=== PATIENT | female | born 1985 | race Caucasian/White ===

== ENCOUNTER → 2017-10-20 12:51 | Outpatient (CLI) | payer BC, SELFPAY | PROVIDERS: PCP Family Medicine; Visit Provider Orthopaedic Surgery | DX: S83.232A Complex tear of medial meniscus, current injury, left knee, initial encounter (principal); Z01.818 Encounter for other preprocedural examination ==

== ENCOUNTER 2017-11-17 09:48 | Emergency (ER) | payer BC, SELFPAY ==
[2017-11-17 10:00] VITALS: BP 158/99; PULSE 72; RESP 18; TEMP 36.7; O2SAT 98
[2017-11-17 10:04] VITALS: RESP 16
--- NOTE | 2017-11-17 10:32 | W.ED.GENAD ---
Discharge Plan Discharge Details Chief Complaint: GenMedical Primary Care Provider: Asa Ochoa ED Provider: eTo Costello Home Meds and New Rx's Prescriptions: No Action ibuprofen [Motrin IB] 200 MG tablet 200 mg PO PRN RF: 0 norethindrone ac-eth estradiol [Loestrin 1.08/09 (21)] 1 EACH tablet 1 ea PO DAILY Qty: 3 RF: 4 prochlorperazine maleate 10 MG tablet 5 - 10 mg PO Q8H PRN PRNQty: 30 RF: 3 multivitamin 1 EACH capsule 1 ea PO DAILY RF: 0 cholecalciferol (vitamin D3) 1,000 UNIT capsule 1,000 unit PO DAILY RF: 0 5-hydroxytryptophan (5-HTP) 50 MG capsule 50 mg PO DAILY RF: 0 Medical Decision Making MDM Narrative Medical decision making narrative: 32-year-old female presents with intermittent episodes of near syncope with associated diaphoresis over days time. She is afebrile, well-appearing, vital signs supple for slight hypertension. Her exam is reassuring including focused neurologic exam. Differential diagnosis given recent surgery and oral contraceptives would include pulmonary embolism, ACS, arrhythmia, dehydration, hypovolemia, electrolyte abnormalities. Laboratories including CBC, comprehensive, d-dimer are reassuring. EKG and chest x-ray without acute findings. Patient laboratories and urine, including her d-dimer are negative. She is not orthostatic. She has not had any significant further episodes. Further history will note previous diagnosis of vertigo and will trial a course of meclizine. Also place her on his heel patch. She will follow-up Dr. Martinez for recheck. She will return to the emergency department for any acute concern. Lab Data Lab results reviewed: Yes I reviewed the patient's lab results. ECG Data Attestation: I personally reviewed and interpreted this ECG (s) as follows: Interpretation: Normal sinus rhythm, rate of 72, QRS is narrow, no ST segment elevation HPI - General Adult General Mode of arrival: ambulatory. Date/Time Provider Initiated Documentation: 11/17/17 10:11. Limitations to Documentation: no limitations. Information obtained by: patient and family. History of Present Illness 32 year old F presents to the emergency department with the chief complaint of Near syncope, described as moderate, and is localized to the chest. Patient started experiencing this day(s) and it has been intermittent. No relieving factors improve symptom(s), No exacerbating factors reported . Patient notes denies fever/chills. Patient did receive the following treatments prior to arrival, none HPI Narrative: This is a 32-year-old female who presents from home with her mother. She describes a gradual onset of intermittent episodes over 4 days time of near syncope. She becomes lightheaded, diaphoretic, feels as if the room is spinning and the vision is going black; she has not had any apolinar syncopal episodes. She denies chest pain. She says associated with a tightness in her chest and abdomen. She does take oral contraceptives. She recently had a left knee arthroscopic repair in October 25. She does not have leg pain or swelling. She does not have shortness of breath or palpitations Related Data Home Medications Medication Instructions Recorded Confirmed ibuprofen [Motrin IB] 200 mg PO PRN 08/15/12 11/17/17 5-hydroxytryptophan (5-HTP) 50 mg PO DAILY 10/20/17 11/17/17 cholecalciferol (vitamin D3) 1,000 unit PO DAILY 10/20/17 11/17/17 multivitamin 1 ea PO DAILY 10/20/17 11/17/17 Allergies Allergy/AdvReac Type Severity Reaction Status Date / Time venlafaxine HCl AdvReac Severe VISUAL Unverified 10/25/17 06:17 [From Effexor] CHANGES General Stated Complaint: GenMedical JANICE: 3 Review of Systems Review of Systems 8 systems reviewed, otherwise neg PFSH Family History Mother Essential hypertension Neoplasm Father Essential hypertension Grandfather Heart disease Grandfather Acute ill-defined cerebrovascular disease Grandmother Heart disease Grandmother No problems noted. Brother No problems noted. Brother No problems noted. Social History Smoking/Tobacco Use Status: Never Surgical History abdominoplasty (05/05/16) Exam Const General: cooperative and comfortable Orientation: alert and oriented x3 HENMT Head: normal to inspection, normocephalic and atraumatic Eyes General: appearance normal, both eyes and all related structures Eyelids: eyelids normal Pupils: PERRL EOM: EOM intact bilaterally Neck Neck: normal visual inspection, full ROM and no lymphadenopathy Chest Chest: normal inspection of the chest and normal palpation of entire chest wall Resp Effort & Inspection: normal respiratory effort Auscultation: clear to auscultation bilaterally Cardio Rhythm: regular rhythm Heart Sounds: S1 normal and S2 normal GI Inspection: normal to inspection Palpation: soft and no hepatosplenomegaly Skin General skin exam: no rashes or lesions noted Lesions: no lesions Rashes: no rashes Neuro General: alert and oriented x3 Cranial Nerves: CN's II-XI intact bilaterally and PERRL Cognition: normal cognition Speech: speech normal Motor: muscle tone normal throughout Sensory Exam: no sensory deficits noted Extrem General: normal to inspection, full ROM and normal capillary refill Psych Appearance: grossly normal and well kempt Speech and Movement: speech and movement normal Mood: congruent mood Affect: normal affect Thought Content: normal Course Vital Signs Temperature 36.7 C 11/17/17 10:00 Pulse 72 11/17/17 10:00 Respiratory Rate 18 11/17/17 10:00 Blood Pressure 158/99 H 11/17/17 10:00 Pulse Oximetry 98 11/17/17 10:00 Temperature 36.7 C 11/17/17 10:00 Pulse 72 11/17/17 10:00 Respiratory Rate 16 11/17/17 10:04 Blood Pressure 158/99 H 11/17/17 10:00 Pulse Oximetry 98 11/17/17 10:00
--- NOTE | 2017-11-17 10:37 | ED.GENADUL_ITS ---
Discharge Plan Discharge Details Chief Complaint: GenMedical Primary Care Provider: Asa Ochoa ED Provider: Teo Costello Home Meds and New Rx's Prescriptions: No Action ibuprofen [Motrin IB] 200 MG tablet 200 mg PO PRN RF: 0 norethindrone ac-eth estradiol [Loestrin 1.08/09 (21)] 1 EACH tablet 1 ea PO DAILY Qty: 3 RF: 4 prochlorperazine maleate 10 MG tablet 5 - 10 mg PO Q8H PRN PRNQty: 30 RF: 3 multivitamin 1 EACH capsule 1 ea PO DAILY RF: 0 cholecalciferol (vitamin D3) 1,000 UNIT capsule 1,000 unit PO DAILY RF: 0 5-hydroxytryptophan (5-HTP) 50 MG capsule 50 mg PO DAILY RF: 0 Medical Decision Making MDM Narrative Medical decision making narrative: 32-year-old female presents with intermittent episodes of near syncope with associated diaphoresis over days time. She is afebrile, well-appearing, vital signs supple for slight hypertension. Her exam is reassuring including focused neurologic exam. Differential diagnosis given recent surgery and oral contraceptives would include pulmonary embolism, ACS, arrhythmia, dehydration, hypovolemia, electrolyte abnormalities. Laboratories including CBC, comprehensive, d-dimer are reassuring. EKG and chest x-ray without acute findings. Patient laboratories and urine, including her d-dimer are negative. She is not orthostatic. She has not had any significant further episodes. Further history will note previous diagnosis of vertigo and will trial a course of meclizine. Also place her on his heel patch. She will follow-up Dr. Martinez for recheck. She will return to the emergency department for any acute concern. Lab Data Lab results reviewed: Yes I reviewed the patient's lab results. ECG Data Attestation: I personally reviewed and interpreted this ECG (s) as follows: Interpretation: Normal sinus rhythm, rate of 72, QRS is narrow, no ST segment elevation HPI - General Adult General Mode of arrival: ambulatory . Date/Time Provider Initiated Documentation: 11/17/17 10:11 . Limitations to Documentation: no limitations . Information obtained by: patient and family . History of Present Illness 32 year old F presents to the emergency department with the chief complaint of Near syncope, described as moderate, and is localized to the chest. Patient started experiencing this day(s) and it has been intermittent. No relieving factors improve symptom(s), No exacerbating factors reported . Patient notes denies fever/chills. Patient did receive the following treatments prior to arrival, none HPI Narrative: This is a 32-year-old female who presents from home with her mother. She describes a gradual onset of intermittent episodes over 4 days time of near syncope. She becomes lightheaded, diaphoretic, feels as if the room is spinning and the vision is going black; she has not had any apolinar syncopal episodes. She denies chest pain. She says associated with a tightness in her chest and abdomen. She does take oral contraceptives. She recently had a left knee arthroscopic repair in October 25. She does not have leg pain or swelling. She does not have shortness of breath or palpitations Related Data Home Medications Medication Instructions Recorded Confirmed ibuprofen [Motrin IB] 200 mg PO PRN 08/15/12 11/17/17 5-hydroxytryptophan (5-HTP) 50 mg PO DAILY 10/20/17 11/17/17 cholecalciferol (vitamin D3) 1,000 unit PO DAILY 10/20/17 11/17/17 multivitamin 1 ea PO DAILY 10/20/17 11/17/17 Allergies Allergy/AdvReac Type Severity Reaction Status Date / Time venlafaxine HCl AdvReac Severe VISUAL Unverified 10/25/17 06:17 [From Effexor] CHANGES General Stated Complaint: GenMedical JANICE: 3 Review of Systems Review of Systems 8 systems reviewed, otherwise neg PFSH Family History Mother Essential hypertension Neoplasm Father Essential hypertension Grandfather Heart disease Grandfather Acute ill-defined cerebrovascular disease Grandmother Heart disease Grandmother No problems noted. Brother No problems noted. Brother No problems noted. Social History Smoking/Tobacco Use Status: Never Surgical History abdominoplasty (05/05/16) Exam Const General: cooperative and comfortable Orientation: alert and oriented x3 HENMT Head: normal to inspection, normocephalic and atraumatic Eyes General: appearance normal, both eyes and all related structures Eyelids: eyelids normal Pupils: PERRL EOM: EOM intact bilaterally Neck Neck: normal visual inspection, full ROM and no lymphadenopathy Chest Chest: normal inspection of the chest and normal palpation of entire chest wall Resp Effort & Inspection: normal respiratory effort Auscultation: clear to auscultation bilaterally Cardio Rhythm: regular rhythm Heart Sounds: S1 normal and S2 normal GI Inspection: normal to inspection Palpation: soft and no hepatosplenomegaly Skin General skin exam: no rashes or lesions noted Lesions: no lesions Rashes: no rashes Neuro General: alert and oriented x3 Cranial Nerves: CN's II-XI intact bilaterally and PERRL Cognition: normal cognition Speech: speech normal Motor: muscle tone normal throughout Sensory Exam: no sensory deficits noted Extrem General: normal to inspection, full ROM and normal capillary refill Psych Appearance: grossly normal and well kempt Speech and Movement: speech and movement normal Mood: congruent mood Affect: normal affect Thought Content: normal Course Vital Signs Temperature 36.7 C 11/17/17 10:00 Pulse 72 11/17/17 10:00 Respiratory Rate 18 11/17/17 10:00 Blood Pressure 158/99 H 11/17/17 10:00 Pulse Oximetry 98 11/17/17 10:00 Temperature 36.7 C 11/17/17 10:00 Pulse 72 11/17/17 10:00 Respiratory Rate 16 11/17/17 10:04 Blood Pressure 158/99 H 11/17/17 10:00 Pulse Oximetry 98 11/17/17 10:00
[2017-11-17 11:16] LABS: Bilirubin Negative (Negative); Blood Negative (Negative); Clarity Clear; Glucose Negative (Negative); Ketones Negative (Negative); Leukocyte Esterase Negative (Negative); Nitrite Negative (Negative); Specific Gravity 1.015 (1.005-1.025); Urobilinogen 0.2 EU/dL (Up TO 0.2)
[2017-11-17] MEDS: Normal Saline 1,000 ML 1000 ML IV (11:20)
[2017-11-17 11:32] LABS: Abs Immature Grans 0.01 k/cumm (0.0-0.09); Absolute Basophil Count 0.02 k/cumm (0.0-0.2); Absolute Eosinophil Count 0.24 k/cumm (0.0-0.7); Absolute Lymphocyte Count 1.63 k/cumm (1.2-3.4); Absolute Monocyte Count 0.42 k/cumm (0.11-0.7); Absolute Neutrophil Count 4.15 k/cumm (1.2-6.7); Basophils % 0.3; Eosinophils % 3.7; HCT 42.2 % (36.0-46.0); Immature Grans % 0.2; Lymphocytes % 25.2; Mean Corp. HGB Concentration 33.2 g/dL (32.0-36.0); Mean Corpuscular Hemoglobin 29.9 pg (27.0-33.0); Mean Corpuscular Volume 90.2 fL (80-95); Mean Platelet Volume 9.5 fL (8.0-11.0); Monocytes % 6.5; Neutrophils % 64.1; Platelet Count 293 x1000/uL (130-400); RBC 4.68 m/cumm (4.00-5.20); RBC Distribution Width 13.1 % (11.7-14.6); White Blood Cell Count 6.47 k/cumm (4.4-10.8)
[2017-11-17 11:46] LABS: ALT 15 U/L (12-78); AST 12 U/L (15-37); Albumin 3.5 g/dL (3.4-5.0); Alkaline Phosphatase 68 U/L (46-116); Anion Gap 6.7 mmol/L (3-11); BUN 9 mg/dL (7-18); Bilirubin, Total 0.5 mg/dL (0.2-1.0); CO2 27.3 mmol/L (21.0-32.0); CREATININE 0.74 mg/dL (0.55-1.02); Calcium 8.8 mg/dL (8.5-10.1); Chloride 104 mmol/L (98-107); Glucose 88 mg/dL (70-100); Magnesium 1.7 mg/dL (1.8-2.4); Sodium 138 mmol/L (136-145); Total Protein 7.7 g/dL (6.4-8.2)
[2017-11-17 11:48] LABS: Troponin I < 0.02 ng/mL (0.00-0.06)
[2017-11-17 12:04] LABS: D-Dimer 306 ng/mlFEU (<500)
[2017-11-17 12:36] VITALS: BP 146/88; PULSE 76; RESP 18; O2SAT 100
--- NOTE | 2017-11-17 12:37 | DI.RAD_ITS ---
SYMPTOMS/DIAGNOSIS: NEAR SYNCOPE PA AND LATERAL CHEST: There are no prior comparison exams. The cardiac and mediastinal contours have a normal appearance. The lungs are clear. No infiltrate, effusion or pneumothorax is seen. IMPRESSION: Negative chest x-ray.
[2017-11-17 12:42] VITALS: BP 137/73; BP 144/92; BP 156/99; PULSE 71; PULSE 74; PULSE 76
[2017-11-17 13:53] VITALS: BP 138/72; PULSE 64; RESP 16; TEMP 36.7; O2SAT 99
--- NOTE | 2017-12-05 15:51 | ZIOP_ITS ---
ZIO PATCH EVENT RECORDER REPORT DATE OF READING: December 01, 2017 ENROLLMENT: November 17, 2017 until November 26, 2017 PRESCRIBING CLINICIAN: Asa Ochoa M.D. PRIMARY INDICATION: Syncope. FINDINGS: 1. Baseline sinus rhythm, 47-141 bpm, average 75 bpm. 2. Rare PAC, less than 1%, no SVT, no AF. 3. Rare PVC, less than 1%, no VT. 4. No significant pauses. 5. Thirteen trigger events, all with sinus rhythm, 72-109 bpm, without any arrhythmia. 6. No symptoms recorded.
== END 2017-11-17 13:53 | disposition home or self-care (01) ==
PROVIDERS: Emergency Provider Emergency Medicine; PCP Family Medicine
DX: R55 Syncope and collapse (principal)
CPT/HCPCS: 36415; 80053; 93005; 93225; 96360; 99285; 71046; 81003; 83735; 84484; 85025; 85379; 93010; 99284

== ENCOUNTER 2018-04-19 08:52 | Outpatient (CLI) | payer BC, SELFPAY ==
--- NOTE | 2018-04-19 08:47 | DI.RAD_ITS ---
SYMPTOM/DIAGNOSIS: LT ANKLE PAIN, M25.572, ? FX LEFT ANKLE: Three views were obtained. No fracture is seen. There is mild hypertrophic spurring of the distal tibia anteriorly.
== END 2018-04-19 09:12 ==
PROVIDERS: PCP Family Medicine; Visit Provider Orthopaedic Surgery
DX: M25.572 Pain in left ankle and joints of left foot (principal); M25.771 Osteophyte, right ankle
CPT/HCPCS: 73610

== ENCOUNTER 2018-04-27 06:12 | Day surgery (SDC) | payer BC, SELFPAY ==
[2018-04-27] VITALS (8 sets, daily range): BP systolic 111–150; BP diastolic 51–90; PULSE 67–83; RESP 13–20; TEMP 36.3–36.9; O2SAT 95–100
[2018-04-27] MEDS: Lactated Ringers 1,000 ML 80 ML IV (06:56)
--- NOTE | 2018-04-27 07:50 | BONE_PTH ---
PATIENT: Angy Brown LOC: [facility] U#:[id number] AGE/SX: 33/F ROOM: RE04/27/[address]: Edvin Page MD : 1985 BED: DIS: 04/27/2018 SPEC #: [id number] RECD: 04/27/18 12:48 STATUS: STEPHANIE AKBAR #: [id number] OBLA: 04/27/18 07:[address]: Edvin Page DEPT: Surgical Specimen RECD BY: Lakisha Dorman ENTERED: 04/27/18 12:50 SP TYPE: Bone OTHR DR: Asa Ochoa MD Tissues: 1 - BONE BX/CURRETTE NOT PATH FRACTURE Procedures: GROSS AND MICRO LEVEL 5 DECALCIFICATION Comments: [id number]
--- NOTE | 2018-04-27 08:10 | DI.RAD_ITS ---
SYMPTOM/DIAGNOSIS: LT ANKLE EXOSTOSIS LEFT FOOT IN THE OR: Fluoroscopy Time: 18 sec., 0.2325 mGy Fluoroscopy of the left foot was utilized by Dr. Page in the OR. Please refer to the procedure report for complete details.
[2018-04-27] MEDS: Bupivacaine 0.5% Pres-Free 30 ML VIAL (08:13)
--- NOTE | 2018-04-27 08:33 | PDOC.DSDIS_ITS ---
Discharge Plan Disposition Patient Disposition: HOME Condition: Improving Discharge Details Attending Provider: Edvin Page Primary Care Provider: Asa Ochoa Home Meds and New Rx's Prescriptions: New hydrocodone-acetaminophen [[place]] 5-325 mg Tablet 1 - 2 tab PO Q4H PRN PRN (Reason: Pain) Qty: 18 RF: 0 No Action epinephrine [EpiPen 2-Eder] 0.3 mg/0.3 mL auto-injector 0.3 mg IM ONCE PRN (Reason: hypersensitivity reaction) Qty: 2 RF: 0 ibuprofen [Motrin IB] 200 MG tablet 200 mg PO PRN RF: 0 prochlorperazine maleate 10 MG tablet 5 - 10 mg PO Q8H PRN PRNQty: 30 RF: 3 Loestrin 1.5/30 (21) 1.5-30 mg-mcg tablet 1 tab PO DAILY Qty: 63 RF: 0 multivitamin 1 EACH capsule 1 ea PO DAILY RF: 0 cholecalciferol (vitamin D3) 1,000 UNIT capsule 1,000 unit PO DAILY RF: 0 5-hydroxytryptophan (5-HTP) 50 MG capsule 50 mg PO DAILY RF: 0 meclizine 12.5 mg tablet 12.5 mg PO TID PRN (Reason: dizziness) Qty: 14 RF: 0 Discharge Instructions Additional Instructions: Keep yout left foot elevated above heart level as much as possible for the next 48-72 hours. Exercise your foot and toes as comfort allows. You mayloosen or remove the ankle brace as soon as you wish. Only use it for discomfort. You may use ice over the incision 20-30 minutes every hour as needed for pain and swelling. For showering tomorrow, use a plastic bag over the the lower leg to keep the bandages dry. On 04/29/18, you may remove all of your bandages and get your incision wet in the shower with soap and water. Gently pat the stiches dry and cover them with an extra large bandaid. Continue using your brace and ice only as needed. Follow-up with Dr. Page in 10 days for wound check and suture removal. Equipment/Supplies: Brace Remove Dressings/Wound Care:: 48 hours Shower/Bathe:: 48 hours Diet:: As Tolerated Discharge Orders Discharge Orders: Discharge Order (Routine); Ordered 04/27/18 Ordered By: Edvin Page
[2018-04-27] MEDS: Ketorolac 30 MG/ML VIAL IVP (08:43)
[2018-04-27] MEDS: fentaNYL 100 MCG/2 ML VIAL IVP ×2 (08:56→09:05)
[2018-04-27] MEDS: HYDROcodone 5/Acetaminophen 325 TAB PO (09:58)
--- NOTE | 2018-04-27 10:32 | ROE_ITS ---
REPORT OF OPERATIVE PROCEDURE DATE OF SURGERY April 27, 2018 PREOPERATIVE DIAGNOSIS Painful exostosis medial aspect left distal tibia. POSTOPERATIVE DIAGNOSIS Painful exostosis medial aspect left distal tibia. PROCEDURE Excision exostosis left distal tibia medial aspect just proximal to the medial malleolus. SURGEON Edvin Page M.D. WINDOWS SERVER ENGINEER Nurse. ANESTHETIC General via LMA by Garo Singh C.R.N.A. PREP ChloraPrep. INDICATIONS This patient presented to my office approximately 10 days ago with a painful exostosis over the media l aspect of her left lower extremity just proximal to the medial malleolus. She has had this for abou t two years. It occurred after she injured her ankle while hiking. It is unclear whether or not this is the result of periosteal new bone formation from trauma or from a nondisplaced medial malleolar fr acture that occurred at the time of the hiking incident. Radiographs showed the exostosis, but did no t demonstrate any evidence of a healed medial malleolar fracture. There was no evidence of a lateral malleolar fracture. There was a small osteophyte over the anterior distal tibia consistent with early osteoarthritis of the ankle. The patient does have some predisposition to arthritis in the ankle bec ause of her morbid obesity. I recommended simple excision. There was nothing on the radiograph to sug gest a neoplasm. I discussed the risks and benefits; she understood and wished to proceed. The patien t found that it had become progressively more painful to the point that it interfered with her abilit y to hike. The patient was seen in the Day Surgery holding area. I reviewed the planned procedure with her and h er mother. I marked her left lower extremity with a surgical skin marker. DESCRIPTION OF OPERATIVE PROCEDURE The patient was taken to the Operating Suite, where she received 2 grams of Ancef as a prophylactic a ntibiotic. A pneumatic tourniquet was applied to the left proximal thigh. Timeout was instituted veri fying the planned procedure and the use of a mini C-arm to make sure any and all of the exostosis had been completely removed. She underwent induction of General anesthesia via LMA. She received her ant ibiotic. The leg was elevated 2 minutes to exsanguinate it. The tourniquet was elevated to 370 mmHg. The exostosis was easily palpable about an inch and a half proximal to the tip of the medial malleo migue. The incision was made over it. Loupe magnification was used throughout. Care was taken to avoid any injury to the saphenous vein. Periosteum over the palpable mass was then incised longitudinally a nd elevated in anterior and posterior flaps. I then used a Bj osteotome to excise the mass into two separate fragments. The larger fragment being slightly posterior to the smaller one. There was no ev idence of any abnormalities in the bone itself. The surface of the bone was carefully smoothed with a rasp. I smoothed it to the point that I could not feel any transition between the normal tibia proxi pj up the shaft with the distal tibia down to the medial malleolus. At this point, a small amount of bees wax was placed in the bone to minimize any bleeding. Sutures of #2-0 Vicryl were placed in th e periosteum and the periosteal flap was closed. The tourniquet was deflated. Hemostasis was under co ntrol and there was excellent return of circulation. The skin was closed with sutures of #4-0 Ethilon in a hsch-xse-bjb-near technique, alternating with horizontal mattress sutures. A small amount of M arcaine, 12 cc of 0.5% Marcaine without epinephrine was injected in the subcutaneous tissues to provi de for postoperative analgesia. The wound was dressed with Xeroform gauze, 4x4s, a 3-inch confirming gauze bandage, 3-inch Tarik wrap and an ankle stabilizing orthosis to help allow her to weight bear imm ediately and to provide a method of keeping her bandages intact. She tolerated the procedure well.
--- NOTE | 2018-05-02 09:08 | PDOC.DSDIS_ITS ---
Discharge Plan Disposition Patient Disposition: HOME Condition: Improving Discharge Details Attending Provider: Edvin Page Primary Care Provider: Asa Ochoa Home Meds and New Rx's Prescriptions: New hydrocodone-acetaminophen [[place]] 5-325 mg Tablet 1 - 2 tab PO Q4H PRN PRN (Reason: Pain) Qty: 18 RF: 0 No Action epinephrine [EpiPen 2-Eder] 0.3 mg/0.3 mL auto-injector 0.3 mg IM ONCE PRN (Reason: hypersensitivity reaction) Qty: 2 RF: 0 ibuprofen [Motrin IB] 200 MG tablet 200 mg PO PRN RF: 0 prochlorperazine maleate 10 MG tablet 5 - 10 mg PO Q8H PRN PRNQty: 30 RF: 3 Loestrin 1.5/30 (21) 1.5-30 mg-mcg tablet 1 tab PO DAILY Qty: 63 RF: 0 multivitamin 1 EACH capsule 1 ea PO DAILY RF: 0 cholecalciferol (vitamin D3) 1,000 UNIT capsule 1,000 unit PO DAILY RF: 0 5-hydroxytryptophan (5-HTP) 50 MG capsule 50 mg PO DAILY RF: 0 meclizine 12.5 mg tablet 12.5 mg PO TID PRN (Reason: dizziness) Qty: 14 RF: 0 Discharge Instructions Additional Instructions: Keep yout left foot elevated above heart level as much as possible for the next 48-72 hours. Exercise your foot and toes as comfort allows. You mayloosen or remove the ankle brace as soon as you wish. Only use it for discomfort. You may use ice over the incision 20-30 minutes every hour as needed for pain and swelling. For showering tomorrow, use a plastic bag over the the lower leg to keep the bandages dry. On 04/29/18, you may remove all of your bandages and get your incision wet in the shower with soap and water. Gently pat the stiches dry and cover them with an extra large bandaid. Continue using your brace and ice only as needed. Follow-up with Dr. Page in 10 days for wound check and suture removal. Stand Alone Forms: [facility] Post op Instructions, Medina Nelson (DS[facility]) Equipment/Supplies: Brace Remove Dressings/Wound Care:: 48 hours Shower/Bathe:: 48 hours Diet:: As Tolerated Discharge Orders Discharge Orders: Discharge Order (Routine); Ordered 04/27/18 Ordered By: Edvin Page Discharge Data Discharge Date/Time-TO BE ENTERED AT DEPARTURE: 04/27/18 10:45 Discharge Comment: ESCORTED OUT OF [facility] VIA WHEELCHAIR WITH NURSING
== END 2018-04-27 10:45 | disposition home or self-care (01) ==
PROVIDERS: PCP Family Medicine; Visit Provider Orthopaedic Surgery
PROC: (CPT 27635; principal; 2018-04-27 07:30)
DX: M84.872 Other disorders of continuity of bone, left ankle and foot (principal); M25.572 Pain in left ankle and joints of left foot
CPT/HCPCS: 27635; 81025; 73620; 88304; 88307; 88311; J0690; J1885; J2250; J3010; L1902

== ENCOUNTER 2018-05-04 17:29 | Outpatient (REF) | payer BC, SELFPAY ==
--- NOTE | 2018-05-04 16:25 | PAPFT_PTH ---
PATIENT: Angy Brown LOC: [facility] U#:[id number] AGE/SX: 33/F ROOM: RE05/04/[address]: PRISCA Ryan : 1985 BED: DIS: 05/04/2018 SPEC #: [id number] RECD: 05/07/18 12:49 STATUS: STEPHANIE REInes #: [id number] BOLA: 05/04/18 16:[address]: Jennifer Frazier DEPT: [facility] Cytology RECD BY: Lakisha Dorman ENTERED: 05/07/18 12:49 SP TYPE: PAPFT OTHR DR: Asa Ochoa MD Tissues: 1 - CX/ENDOCX FOR PAP SMEARS Procedures: PAP THIN PREP/UVM Screening HPV DNA PROBE Comments: [id number]
== END 2018-05-04 17:49 ==
LOC: LBN 17:29
PROVIDERS: PCP Family Medicine; Visit Provider Nurse Practitioner Family
DX: Z12.4 Encounter for screening for malignant neoplasm of cervix (principal); Z11.51 Encounter for screening for human papillomavirus (HPV)
CPT/HCPCS: 88142; 87624

== ENCOUNTER 2018-05-18 15:11 | Outpatient (REF) | payer BC, SELFPAY | END 2018-05-18 15:31 | LOC: NCHCN 15:11 | PROVIDERS: PCP Family Medicine; Visit Provider Nurse Practitioner Family | DX: I10 Essential (primary) hypertension (principal); F41.8 Other specified anxiety disorders; E66.9 Obesity, unspecified | CPT/HCPCS: 84443 ==

== ENCOUNTER 2018-10-29 15:07 | Outpatient (REF) | payer BC, SELFPAY ==
[2018-10-29 21:33] LABS: Anion Gap 10.6 mmol/L (3-11); BUN 14 mg/dL (7-18); CO2 24.4 mmol/L (21.0-32.0); CREATININE 0.75 mg/dL (0.55-1.02); Calcium 8.8 mg/dL (8.5-10.1); Chloride 103 mmol/L (98-107); Glucose 95 mg/dL (70-100); Potassium 4.2 mmol/L (3.5-5.1); Sodium 138 mmol/L (136-145)
== END 2018-10-29 15:27 ==
LOC: NCHCN 15:07
PROVIDERS: PCP Nurse Practitioner Family; Visit Provider Nurse Practitioner Family
DX: I10 Essential (primary) hypertension (principal)
CPT/HCPCS: 80048

== ENCOUNTER 2020-02-07 04:47 | Outpatient (CLI) | payer BC, SELFPAY ==
[2020-02-09 07:29] LABS: Patient Race White; SARS-CoV-2 RNA Undetected (Undetected); SARS-CoV-2 Specimen Source Nasal
== END 2020-02-07 05:07 ==
PROVIDERS: PCP Nurse Practitioner Family; Visit Provider Nurse Practitioner Family
DX: Z20.828 Contact with and (suspected) exposure to other viral communicable diseases (principal)
CPT/HCPCS: U0003

== ENCOUNTER 2020-03-05 08:35 | Outpatient (CLI) | payer BC, SELFPAY ==
[2020-03-06 16:58] LABS: COVID-19 RT-PCR UVMMC Result Negative (Negative)
== END 2020-03-05 08:55 ==
PROVIDERS: PCP Nurse Practitioner Family; Visit Provider Nurse Practitioner Family
DX: Z20.828 Contact with and (suspected) exposure to other viral communicable diseases (principal)
CPT/HCPCS: U0003

== ENCOUNTER 2020-03-23 18:03 | Outpatient (REF) | payer BC, SELFPAY ==
[2020-03-23 21:02] LABS: HCT 43.9 % (36.0-46.0); HGB 14.4 g/dL (11.2-15.7); MCH 29.3 pg (27.0-33.0); MCHC 32.8 % (32.0-36.0); MCV 89.2 fL (80-95); MPV 10.3 fL (8.0-11.0); Platelet Count 293 10^3/uL (130-400); RBC 4.92 10^6/uL (3.93-5.22); RDW 13.2 % (11.7-14.6); RDW-SD 42.9 fL; WBC 8.23 10^3/uL (4.4-10.8)
[2020-03-23 21:14] LABS: C-Reactive Protein 0.89 mg/dL (0.0-0.3)
[2020-03-23 21:40] LABS: ESR 8 mm/hr (0-20)
[2020-03-25 11:06] LABS: Cyclic Citrullinated Peptide <2.5 U/mL (<5.0)
== END 2020-03-23 18:23 ==
LOC: NCHCN 18:03
PROVIDERS: PCP Nurse Practitioner Family; Visit Provider Internal Medicine
DX: M12.849 Other specific arthropathies, not elsewhere classified, unspecified hand (principal)
CPT/HCPCS: 85027; 85652; 86200; 86140

== ENCOUNTER 2020-08-08 21:47 | Emergency (ER) | payer BC, SELFPAY ==
[2020-08-08 21:55] VITALS: BP 144/96; PULSE 90; RESP 16; TEMP 36.6; O2SAT 97
--- NOTE | 2020-08-08 22:45 | DI.RAD_ITS ---
Exam(s) XR FINGER RT INDEX EXAM: XR FINGER RT INDEX CLINICAL HISTORY: dog bite. TECHNIQUE: 2D digital imaging was performed. COMPARISON: No exams were available for comparison FINDINGS: BONES: No acute fracture is present. No bony destructive lesion is seen. JOINTS: No dislocation present. SOFT TISSUE: Soft tissue swelling of the index finger. No radiopaque foreign body is identified. IMPRESSION: 1. No evidence of acute fracture, dislocation. 2. Soft tissue swelling of the index finger. No radiopaque foreign body. DATA REPOSITORY: RADIATION DOSE DELIVERED:
--- NOTE | 2020-08-08 22:52 | ED.GENADUL_ITS ---
Discharge Plan Disposition Patient Disposition: HOME Condition: Good Discharge Details Clinical Impression: Dog bite Primary Care Provider: Avelina Palomares ED Provider: Lakisha Torres Home Meds and New Rx's Prescriptions: New amoxicillin-pot clavulanate [Augmentin] 875-125 mg tablet 1 tab PO BID Qty: 14 RF: 0 fluconazole [Diflucan] 200 mg tablet 200 mg PO DAILY Qty: 1 RF: 0 No Action epinephrine [EpiPen 2-Eder] 0.3 mg/0.3 mL auto-injector 0.3 mg IM ONCE PRN (Reason: hypersensitivity reaction) Qty: 2 RF: 0 ibuprofen [Motrin IB] 200 MG tablet 200 mg PO PRN RF: 0 Discharge Instructions Instructions: Animal Bite (ED) Additional Instructions: Take ibuprofen 600 mg every 8 hours with food as needed for pain and swelling You may take Tylenol 150 mg as needed for pain control every 4-6 hours Take antibiotic as prescribed Yogurt daily while on antibiotic Return spreading redness, fever, worsening pain Follow-up with PCP in 2 to 3 days for reevaluation Return earlier with spreading redness, fever, worsening pain Refrain from bending finger We have left the wound open to prevent infection Discharge Data Discharge Date/Time-TO BE ENTERED AT DEPARTURE: 08/09/20 00:50 Medical Decision Making Neurovascularly intact, low suspicion for open fracture or intra-articular injury, placed on antibiotics prophylactically, placed in splint and wound cleansed copiously More of a risk than benefit to suture these wounds is a likelihood of infection is increased dramatically with suturing Close outpatient follow-up recommended [facility] report for x-ray reviewed and images reviewed by me where available that acute fracture noted per radiologist interpretation The threshold to return with new or worsening complaints Placed on Augmentin for the next 7 days, recheck in 3 days recommended Differential Diagnosis Differential Diagnosis: Open fracture, abrasion, puncture, laceration Medical Records Medical records reviewed: Yes I reviewed the patient's medical records. HPI General Mode of arrival: ambulatory . Date/Time Provider Initiated Documentation: 08/08/20 22:48 . Limitations to Documentation: no limitations . Information obtained by: patient . HPI Narrative: This 35-year-old female otherwise healthy presents with dog bite to her right index finger. She states that she broke up a fight between 2 dogs at a dog park. The dog had up-to-date rabies vaccine. She states that her tetanus is uncertain. She denies any sensation or strength change. The event occurred approximately an hour and a half prior to arrival. She took Tylenol prior to arrival. She denies any additional injuries. Describes a pressure sensation in the past of her fingers. Related Data Home Medications Medication Instructions Recorded Confirmed ibuprofen [Motrin IB] 200 mg PO PRN 08/15/12 05/04/18 epinephrine 0.3 mg/0.3 mL 0.3 mg IM ONCE PRN #2 each 12/18/17 05/04/18 injection, auto-injector amoxicillin-pot clavulanate 1 tab PO BID #14 tab 08/09/20 [Augmentin] fluconazole [Diflucan] 200 mg PO DAILY #1 tab 08/09/20 Previous Rx's Medication Instructions Recorded epinephrine 0.3 mg/0.3 mL 0.3 mg IM ONCE PRN #2 each 12/18/17 injection, auto-injector amoxicillin-pot clavulanate 1 tab PO BID #14 tab 08/09/20 [Augmentin] fluconazole [Diflucan] 200 mg PO DAILY #1 tab 08/09/20 Allergies Allergy/AdvReac Type Severity Reaction Status Date / Time venlafaxine HCl AdvReac Severe VISUAL Unverified 08/08/20 21:59 [From Effexor] CHANGES General Stated Complaint: AnimalBite JANICE: 4 Review of Systems Narrative: Review of systems obtained x3 aside from where indicated in HPI [facility] Medical History (Updated 08/09/20 @ 00:08 by YENNY Schroeder) Anxiety (08/21/12) Contraception (11/26/15) Migraine (08/21/12) Surgical History (Updated 02/16/17 @ 16:18 by Jennifer Frazier NP) abdominoplasty (05/05/16) [facility] [place] Family History Mother Essential hypertension Neoplasm BREAST Father Essential hypertension Grandfather Heart disease Grandfather Acute ill-defined cerebrovascular disease Grandmother Heart disease Grandmother No problems noted. Brother No problems noted. Brother No problems noted. Social History (Updated 04/19/18 @ 09:39 by YENNY Diana) Smoking/Tobacco Use Status: Never Smoking risk assessment performed?: Yes Alcohol Intake: current Alcohol Intake frequency: a few times a month Alcohol type: beer Drug use: Occasionally Substance use type: marijuana Do you feel safe at home: Yes Do you feel safe in your relationship?: Yes Exam Const General: cooperative, comfortable and no acute distress Extrem Other: Puncture noted to right second digit along radial aspect of the right dorsal index finger nail, 2 punctures noted to palmar aspect of right second digit on hand, one at middle phalanx and 1 at distal finger overlyingtuft No tenderness to hand Course Vital Signs Vital signs: Vital Signs Temperature 36.6 C 08/08/20 21:55 Pulse 90 08/08/20 21:55 Respiratory Rate 16 08/08/20 21:55 Blood Pressure 144/96 H 08/08/20 21:55 Pulse Oximetry 97 08/08/20 21:55 Temperature 36.6 C 08/08/20 21:55 Pulse 90 08/08/20 21:55 Respiratory Rate 16 08/08/20 21:55 Respiratory Effort Non-Labored 08/08/20 22:01 Blood Pressure 144/96 H 08/08/20 21:55 Pulse Oximetry 97 08/08/20 21:55 Pain Level 3 08/08/20 21:55
--- NOTE | 2020-08-09 00:07 | DI.VRAD_ITS ---
PROCEDURE INFORMATION: Exam: XR Right Finger(s) Exam date and time: 08/08/2020 10:50 PM Age: 35 years old Clinical indication: Injury or trauma; Other: Dog bite; Index finger; Right TECHNIQUE: Imaging protocol: XR Right fingers. Views: Minimum 2 views. COMPARISON: No relevant prior studies available. FINDINGS: Bones/joints: Bone mineralization is age-appropriate. There is no evidence of fracture. No evidence of dislocation. The joint spaces are adequately preserved; no significant degenerative narrowing and no bony erosion seen. Soft tissues: Soft tissue defect and soft tissue swelling seen within the right index finger consistent with patient's history of dog bite. No radiopaque foreign body present. IMPRESSION: 1. No acute osseous abnormality. 2. Soft tissue defect and soft tissue swelling seen within the right index finger consistent with patient's history of dog bite. Dictated and Authenticated by: Lance Petty MD. Ordering:CATHERINE Banuelos MD
[2020-08-09] MEDS: Amoxicillin 875/Clav. 125 TAB PO (00:31)
--- NOTE | 2020-08-09 09:04 | NUR.NOTE ---
Nursing Note: Spoke with [place] [facility] Officer Abigail Arora, she is aware and has contact info for pt. Faxed the report to the [facility] Clerk. Keiry Duron Fax storehouse clerk [phone]
== END 2020-08-09 00:50 | disposition home or self-care (01) ==
PROVIDERS: Emergency Provider Physician Assistant; PCP Nurse Practitioner Family
DX: S61.250A Open bite of right index finger without damage to nail, initial encounter (principal); W54.0XXA Bitten by dog, initial encounter
CPT/HCPCS: 90471; 99284; 73140; 99283

== ENCOUNTER 2021-01-25 17:02 | Outpatient (CLI) | payer BC, SELFPAY ==
--- NOTE | 2021-01-25 17:25 | DI.RAD_ITS ---
Exam(s) XR HAND RT COMPLETE EXAM: XR HAND RT COMPLETE CLINICAL HISTORY: HAND PAIN; RIGHT. TECHNIQUE: 2D digital imaging was performed. COMPARISON: CR,XR XR FINGER RT INDEX from 08/08/2020 FINDINGS: BONES: No acute fracture is present. No bony destructive lesion is seen. JOINTS: No dislocation present. SOFT TISSUE: Mild edema IMPRESSION: Unremarkable radiographs of the right hand. DATA REPOSITORY: RADIATION DOSE DELIVERED:
--- NOTE | 2021-01-25 17:50 | DI.VRAD_ITS ---
PROCEDURE INFORMATION: Exam: XR Right Hand Exam date and time: 01/25/2021 5:20 PM Age: 35 years old Clinical indication: Injury or trauma; Other: Smashed in door; Blunt trauma (contusions or hematomas); Hand; Right TECHNIQUE: Imaging protocol: XR Right hand. Views: 3 or more views. COMPARISON: CR XR FINGER RT INDEX 08/08/2020 11:40 PM FINDINGS: Bones/joints: No acute osseous injury or underlying osseous mass. Bony excrescence is seen along the lateral 1st metacarpal bone. Soft tissues: Edema noted within the hand. IMPRESSION: Edema without underlying acute osseous injury. If patient's trauma was very recent and should symptoms persist, recommend follow-up imaging in 7-10 days to evaluate for possible occult fracture. Dictated and Authenticated by: Rusty Elizondo MD. Ordering:IRMA Rodriguez MD
== END 2021-01-25 17:22 ==
PROVIDERS: PCP Nurse Practitioner Family; Visit Provider Physician Assistant Medical
DX: M79.641 Pain in right hand (principal)
CPT/HCPCS: 73130

== ENCOUNTER 2021-08-16 06:24 | Emergency (ER) | payer OTHER, SELFPAY ==
[2021-08-16 06:27] VITALS: PULSE 85; RESP 16; TEMP 35.9; O2SAT 98
--- NOTE | 2021-08-16 06:30 | DI.CT_ITS ---
Exam(s) CT ABDOMEN PELVIS WO EXAM: CT ABDOMEN PELVIS WO CLINICAL HISTORY: rlq pain, diarrhea, r/o appe. TECHNIQUE: Imaging Protocol: Axial computed tomography images with coronal and sagittal reformatted images were created and reviewed. Oral: no COMPARISON: No exams were available for comparison FINDINGS: ABDOMEN: Lung Bases: Normal where visualized. Liver: Enlarged. Fatty infiltration.. No measurable mass. Gallbladder and biliary tract: No radiodense calculus or dilation. Pancreas: Normal density, no abnormal calcifications or inflammatory process. Spleen: Normal. Kidneys: Normal size, contour and axis. No radiodense stones or obstructive uropathy. No masses seen. Adrenal glands: No masses seen. Lymph nodes: Within normal limits. Abdominal Aorta: Abdominal portion non-dilated. PELVIS: Bladder: Empty.. Bowel: No obstruction or bowel wall thickening. No evidence of appendicitis. No colonic wall thickeni ng. Normal quantity of stool. Peritoneal cavity: No ascites, collection or mesenteric inflammatory response. Surgical clips anterio r abdominal wall. Fatty containing abdominal wall hernia. Reproductive organs: Within normal limits. Bones: Within normal limits. IMPRESSION: Unremarkable CT scan of the abdomen and pelvis. RADIATION DOSE DELIVERED: 1,313.37mGy.cm Total DLP DATA REPOSITORY: All CT scans at this facility are submitted to the National Radiology Data Registry (NRDR) Dose Index Registry (DIR) with the [employer] (ACR). RADIATION OPTIMIZATION: All CT scans at this facility use at least one of these dose optimization te chniques: automated exposure control; mA and/or kV adjustment per patient size (includes targeted exa ms where dose is matched to clinical indication); or iterative reconstruction.
--- NOTE | 2021-08-16 06:39 | W.ED.GENAD ---
Discharge Plan Disposition Patient Disposition: STILL A PATIENT Condition: Stable Discharge Details Clinical Impression: Abdominal pain, RLQ Primary Care Provider: Avelina Palomares ED Provider: Francois Mcnamara Home Meds and New Rx's Prescriptions: No Action epinephrine [EpiPen 2-Eder] 0.3 mg/0.3 mL auto-injector 0.3 mg IM ONCE PRN (Reason: hypersensitivity reaction) Qty: 2 0RF ibuprofen [Motrin IB] 200 MG tablet 200 mg PO PRN amoxicillin-pot clavulanate [Augmentin] 875-125 mg tablet 1 tab PO BID Qty: 14 0RF fluconazole [Diflucan] 200 mg tablet 200 mg PO DAILY Qty: 1 0RF Medical Decision Making This is a pleasant 36-year-old female with no significant past medical history who presents today for right lower quadrant abdominal pain and diarrhea and nausea. Patient states that about a day and a half ago she went to some friends house and since then she has had generalized abdominal achiness diarrhea and feeling nauseous. She has dry heaves but not vomited. Her diarrhea is liquid, but has no blood. She denies any chest pain or shortness of breath. She denies any fever or chills. She denies any previous abdominal surgeries. No urinary complaints, no vaginal discharge. Exam demonstrates mild right lower quadrant abdominal pain on palpation.Negative Pate sign. Concern is for potential appendicitis, versus gastroenteritis. We will get a CT scan, treat the patient's pain, rehydrate, monitor closely and reassess. Patient will be signed out to my colleague Dr. Cecy Souza for follow-up on labs and imaging. HPI General Date/Time Provider Initiated Documentation: 08/16/21 06:26. HPI Narrative: This is a pleasant 36-year-old female with no significant past medical history who presents today for right lower quadrant abdominal pain and diarrhea and nausea. Patient states that about a day and a half ago she went to some friends house and since then she has had generalized abdominal achiness diarrhea and feeling nauseous. She has dry heaves but not vomited. Her diarrhea is liquid, but has no blood. She denies any chest pain or shortness of breath. She denies any fever or chills. She denies any previous abdominal surgeries. No urinary complaints, no vaginal discharge. Related Data Home Medications Medication Instructions Recorded Confirmed ibuprofen 200 mg tablet (Motrin IB) 200 mg PO PRN 08/15/12 08/16/21 epinephrine 0.3 mg/0.3 mL 0.3 mg (0.3 mL) IM ONCE PRN 12/18/17 08/16/21 injection, auto-injector (EpiPen hypersensitivity reaction #2 ea 2-Eder) amoxicillin 875 mg-potassium 1 tab PO BID #14 tabs 08/09/20 clavulanate 125 mg tablet (Augmentin) fluconazole 200 mg tablet 200 mg PO DAILY #1 tab 08/09/20 (Diflucan) Previous Rx's Medication Instructions Recorded epinephrine 0.3 mg/0.3 mL 0.3 mg (0.3 mL) IM ONCE PRN 12/18/17 injection, auto-injector (EpiPen hypersensitivity reaction #2 ea 2-Eder) amoxicillin 875 mg-potassium 1 tab PO BID #14 tabs 08/09/20 clavulanate 125 mg tablet (Augmentin) fluconazole 200 mg tablet 200 mg PO DAILY #1 tab 08/09/20 (Diflucan) Allergies Allergy/AdvReac Type Severity Reaction Status Date / Time venlafaxine HCl AdvReac Severe VISUAL Unverified 08/16/21 06:32 [From Effexor] CHANGES General Stated Complaint: Nausea/Vomit/Diar JANICE: 3 Review of Systems All systems reviewed & are unremarkable except as noted in HPI and below PFSH All Active Problems (Updated 08/16/21 @ 06:42 by Francois Mcnamara DO) Dog bite (Acute) Abdominal pain, RLQ (Acute) Migraine (Acute 08/21/12) Contraception (Acute 11/26/15) Anxiety (Acute 08/21/12) Surgical History abdominoplasty (05/05/16) [facility] [place] Family History Mother Essential hypertension Neoplasm BREAST Father Essential hypertension Grandfather Heart disease Grandfather Acute ill-defined cerebrovascular disease Grandmother Heart disease Grandmother No problems noted. Brother No problems noted. Brother No problems noted. Social History Smoking/Tobacco Use Status: Never Smoking risk assessment performed?: Yes Alcohol Intake: current Alcohol Intake frequency: a few times a month Alcohol type: beer Drug use: Occasionally Substance use type: marijuana Do you feel safe at home: Yes Do you feel safe in your relationship?: Yes Exam Narrative Exam Narrative: 1.Const: Well-nourished, Well-developed, appearing stated age 2.Eyes: PERRL, no conjunctival injection, and symmetrical lids. 3.ENT: Atraumatic external nose and ears. Moist MM. Neck: Symmetric, trachea midline, No thyromegaly. 4.CVS: +S1/S2, No murmurs or gallops. Peripheral pulses 2+ and equal in all extremities. Brisk capillary refill in all extremities. 5.RESP: Unlabored respiratory effort. Clear to auscultation bilaterally. No wheezes rales or rhonchi 6.GI: Soft, N nondistended, no guarding or rebound. Mild to moderate pain in the right lower quadrant on palpation. Negative Pate sign. No left-sided abdominal pain. Negative Rovsing sign. 7.MSK: Normocephalic/Atraumatic, Extremities w/o deformity or ttp No cyanosis or clubbing, Normal movement of all extremities 8.Skin: Warm, Dry. No rashes or lesions. 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 Sensation grossly intact, no focal neurologic deficits. 10.Psych: (AAO) x3. Appropriate mood and affect Course Vital Signs Vital signs: Vital Signs Temperature 35.9 C L 08/16/21 06:27 Pulse 85 08/16/21 06:27 Respiratory Rate 16 08/16/21 06:27 Pulse Oximetry 98 08/16/21 06:27 Temperature 35.9 C L 08/16/21 06:27 Temperature Source Skin 08/16/21 06:27 Pulse 85 08/16/21 06:27 Respiratory Rate 16 08/16/21 06:27 Respiratory Effort Non-Labored 08/16/21 06:33 Blood Pressure Position Sitting 08/16/21 06:27 Pulse Oximetry 98 08/16/21 06:27 Oxygen Delivery Method Room Air 08/16/21 06:27 Oxygen Flow Rate 0 08/16/21 06:27 Sign Out Sign Out Data: Sign Out Comment: Follow-up on labs and imaging. Patient has right lower quadrant pain and diarrhea Last updated by Francois Mcnamara DO at 08/16/21 07:05 PAWSS Have you Been Recently Intoxicated or Drunk Within the Last 30 days?: No Have you Ever Experienced Previous Episodes of Alcohol Withdrawal?: No Have you ever Experienced Withdrawal Seizures?: No Have you ever Experienced Delirium Tremens(DT)s?: No Have you ever undergone Alcohol Rehabilitation Treatment (i.e, inpt ot outpatient treatment programs)?: No Have you ever Experienced Blackouts?: No Have you ever Combined Alcohol with other Downers within the last 90 days?: No Have you ever Combined Alcohol with any other Substance of Abuse during the last 90 days?: No Positive Blood Alcohol level on Presentation? [PCS.BAL]: No Evidence of Increased Autonomic Activity (i.e. HR>120, tremor, sweating, agitation, nausea)?: No Result: 0
[2021-08-16] MEDS: MORPHine 4 MG/ML SYR IVP (06:46)
[2021-08-16] MEDS: Normal Saline 1,000 ML 1000 ML IV (06:47)
[2021-08-16] MEDS: Ondansetron 4 MG/2 ML VIAL IVP (06:47)
[2021-08-16 06:52] VITALS: BP 148/95
[2021-08-16 07:02] LABS: Abs Immature Grans 0.04 10^3/uL (0.0-0.06); Absolute Basophil Count 0.03 10^3/uL (0.0-0.2); Absolute Eosinophil Count 0.13 10^3/uL (0.0-0.7); Absolute Monocyte Count 0.77 10^3/uL (0.1-0.8); Basophils % 0.4; Eosinophils % 1.7; HCT 41.5 % (36.0-46.0); HGB 13.4 g/dL (11.2-15.7); Immature Grans % 0.5; Lymphocytes % 18.5; MCH 29.2 pg (27.0-33.0); MCHC 32.3 % (32.0-36.0); MCV 90 fL (80-95); MPV 9.5 fL (8.0-11.0); Monocytes % 10.2; Neutrophils % 68.7; Platelet Count 264 10^3/uL (130-400); RBC 4.59 10^6/uL (3.93-5.22); RDW 13.1 % (11.7-14.6); RDW-SD 42.6 fL; WBC 7.57 10^3/uL (4.4-10.8)
[2021-08-16 07:18] LABS: ALT 16 U/L (14-59); AST 11 U/L (15-37); Albumin 3.2 g/dL (3.4-5.0); Alkaline Phosphatase 94 U/L (46-116); Anion Gap 8.1 mmol/L (3-11); BUN 7 mg/dL (7-18); Bilirubin, Total 0.4 mg/dL (0.2-1.0); CO2 22.9 mmol/L (21.0-32.0); CREATININE 0.7 mg/dL (0.55-1.02); Chloride 106 mmol/L (98-107); Glucose 110 mg/dL (74-106); Lipase 50 U/L (73-393); Sodium 137 mmol/L (136-145)
[2021-08-16 07:19] LABS: Potassium 2.8 mmol/L (3.5-5.1)
[2021-08-16 07:36] LABS: Bilirubin Negative (Negative); Blood Small (Negative); Clarity Clear (Clear); Glucose Negative (Negative); Ketones Negative (Negative); Leukocyte Esterase Negative (Negative); Nitrite Negative (Negative); Specific Gravity >= 1.030 (1.005-1.025); Urobilinogen 0.2 EU/dL (Up TO 0.2)
[2021-08-16 07:44] LABS: Bacteria Negative HPF (Negative); C & S Indicated? No; Casts Negative LPF (Negative); Crystals Negative HPF (Negative); Epithelial Cells Few HPF (Negative); Mucus Moderate (Negative); WBC Negative HPF (0-5)
[2021-08-16 07:44] LABS: Magnesium 1.7 mg/dL (1.8-2.4)
[2021-08-16] MEDS: Ketorolac 15 MG/ML VIAL IVP (08:07)
[2021-08-16] MEDS: Ketorolac 15 MG/ML VIAL (08:07)
[2021-08-16] MEDS: POTASSIUM CHLORIDE 20 MEQ/100 ML BAG 50 MEQ IVPB (08:07)
[2021-08-16 08:46] VITALS: BP 128/72; PULSE 82; RESP 18; O2SAT 98
--- NOTE | 2021-08-16 09:25 | W.EDPROG ---
Date of service: 08/16/21 Time of Service: 08:26 Medical Decision Making patient resting comfortably, ct shows no acute findings, labs showed K of 2.8 otherwise unremarkable. SHe is now tolerating po and has no tenderness on abdominal exam. Given her diarrhea and general weakness she's had suspect gastroenteritis. She is stable for d/c, advised to f/u with pcp if symptoms continue and return precautions given Differential Diagnosis Differential Diagnosis: gastroenteritis, food illness Imaging Data Radiologic Study: Attestation: I personally reviewed and interpreted this imaging study as follows: Imaging: CT Scan Radiologist's impression: Patient Name: Angy Brown Unit #: [id number] Loc: ER ? Ordering Provider:? Francois Mcnamara DO Status: REG ER ? Primary Care Provider: Avelina Palomares Date of Exam: 08/16/21 Sex: F ? : 1985 Age: 36 ? Exam(s) a CT:CT abdomen & pelvis wo Exam(s) CT ABDOMEN ? PELVIS WO EXAM:? CT ABDOMEN ? PELVIS WO CLINICAL HISTORY: ? rlq pain, diarrhea, r/o appe.? TECHNIQUE:? Imaging Protocol: Axial computed tomography images with coronal and sagittal reformatted images were created and reviewed. Oral:? no COMPARISON:? No exams were available for comparison FINDINGS: ABDOMEN: Lung Bases: Normal where visualized. Liver: Enlarged.? Fatty infiltration..? No measurable mass. Gallbladder and biliary tract: No radiodense calculus or dilation. Pancreas: Normal density, no abnormal calcifications or inflammatory process. Spleen: Normal. Kidneys: Normal size, contour and axis. No radiodense stones or obstructive uropathy. No masses seen. Adrenal glands: No masses seen. Lymph nodes: Within normal limits. Abdominal Aorta: Abdominal portion non-dilated. PELVIS:? Bladder: Empty..? Bowel: No obstruction or bowel wall thickening. No evidence of appendicitis. No colonic wall thickening. Normal quantity of stool. Peritoneal cavity: No ascites, collection or mesenteric inflammatory response. Surgical clips anterior abdominal wall. Fatty containing abdominal wall hernia. Reproductive organs: Within normal limits. Bones: Within normal limits. IMPRESSION: Unremarkable CT scan of the abdomen and pelvis. Lab Data Lab results reviewed: Yes I reviewed the patient's lab results. Sign Out Sign Out Data: Sign Out Comment: Follow-up on labs and imaging. Patient has right lower quadrant pain and diarrhea Last updated by Francois Mcnamara DO at 08/16/21 07:05 Discharge Plan Disposition Patient Disposition: HOME Condition: Stable Discharge Details Clinical Impression: Abdominal pain, RLQ, Diarrhea, Hypokalemia Primary Care Provider: Avelina Palomares ED Provider: Allan Liu Home Meds and New Rx's Prescriptions: New ondansetron 4 mg tablet,disintegrating 4 mg PO Q8H PRN (Reason: nausea and vomiting) Qty: 30 0RF Continued epinephrine [EpiPen 2-Eder] 0.3 mg/0.3 mL auto-injector 0.3 mg IM ONCE PRN (Reason: hypersensitivity reaction) Qty: 2 0RF ibuprofen [Motrin IB] 200 MG tablet 200 mg PO PRN fluconazole [Diflucan] 200 mg tablet 200 mg PO DAILY Qty: 1 0RF No Action amoxicillin-pot clavulanate [Augmentin] 875-125 mg tablet 1 tab PO BID Qty: 14 0RF Discharge Instructions Instructions: Hypokalemia (ED) Additional Instructions: Your blood work showed a low potassium otherwise no concerning findings. You likely are suffering from a viral gastroenteritis or stomach bug. if symptoms are not improving in 3 days follow up with your primary care provider return to the emergency department if you feel more ill, have severe pain or persistent vomit return to the emergency department
== END 2021-08-16 09:48 | disposition home or self-care (01) ==
PROVIDERS: Student in an Organized Health Care Education/Training Program; Emergency Provider Emergency Medicine; PCP Nurse Practitioner Family
DX: R10.31 Right lower quadrant pain (principal); E87.6 Hypokalemia; R19.7 Diarrhea, unspecified
CPT/HCPCS: 80053; 83690; 96361; 96365; 96375; 99285; 74176; 81003; 81015; 83735; 85025; 99284; J1885; J2270; J2405; J3480

== ENCOUNTER 2022-02-24 13:06 | Emergency (ER) | payer OTHER, SELFPAY ==
[2022-02-24 13:11] VITALS: BP 132/92; PULSE 78; RESP 16; TEMP 37.4; O2SAT 99
--- NOTE | 2022-02-24 13:42 | ED.GENADUL_ITS ---
Discharge Plan Disposition Patient Disposition: Home Condition: Stable Discharge Details Clinical Impression: Allergic reaction Primary Care Provider: Avelina Palomares ED Provider: Devang Lang Home Meds and New Rx's Prescriptions: New epinephrine [EpiPen 2-Eder] 0.3 mg/0.3 mL auto-injector 0.3 mg IM Q5-15M PRNQty: 2 0RF Rx Instructions: do not exceed 3 doses per episode prednisone 20 mg tablet 60 mg PO DAILY 5 Days Qty: 15 0RF Continued epinephrine [EpiPen 2-Eder] 0.3 mg/0.3 mL auto-injector 0.3 mg IM ONCE PRN (Reason: hypersensitivity reaction) Qty: 2 0RF ibuprofen [Motrin IB] 200 MG tablet 200 mg PO PRN Discharge Instructions Instructions: General Allergic Reaction (ED) Additional Instructions: Prednisone as directed. [id number] Benadryl and Pepcid as directed. I have provided you a refill of your EpiPen. Please watch for new or worsening symptoms and return to the ER for any concerns. Lastly, please contact your primary care provider to make them aware of your ER visit, ongoing symptoms, and potential need for outpatient reevaluation and/or referral to an associate professor of archaeology specialist. Discharge Data Discharge Date/Time-TO BE ENTERED AT DEPARTURE: 02/24/22 16:00 Medical Decision Making This is a 36-year-old female, denies significant past medical history, reports that she flew back from [place] via [place] yesterday, noticed a rash on her chest on the plane. Denies any known exposure. Reports the rash is warm and itchy, took qeep-koq-tqxkxfr meds yesterday and symptoms seem to improve; however, throughout the day today they have worsened. Took Benadryl around 0930 as well as Pepcid. Reports that she had an allergic reaction many years ago, does not know what the reaction was to, at that time was prescribed an EpiPen but never required to use it. She denies any difficulty speaking, swallowing, breathing, wheezing, lip, mouth, tongue swelling. Reports that given her symptoms are worsening throughout the day decided to come to the ER for further evaluation. Clinically she appears well, nontoxic. Reaction appears to be localized along her chest and anterior neck. No signs of secondary infection. No evidence of angioedema. Plan to obtain IV access, provide IV fluid, Solu- Medrol, Benadryl and reassess. Patient was 30 in the ER for over 2 hours without evidence of decompensation. Upon discharge patient reports that the rash is shrinking in size although still present, appears less angry. No signs of angioedema or systemic allergic reaction. Will provide burst dose steroid prescription, patient will continue oral Pepcid and Benadryl. I will provide a refill of her EpiPen's as they have become . Discussed the importance of outpatient follow-up through her PCP potential need for referral to an associate professor of archaeology. Standard discharge and return precautions were provided. Patient understands, is agreeable to this plan, and has no additional questions or concerns upon discharge. This documentation was generated using Caninesation system, please disregard any oddities of phrase or misspellings. Medical Records Medical records reviewed: Yes I reviewed the patient's medical records. HPI General Mode of arrival: ambulatory . Date/Time Provider Initiated Documentation: 02/24/22 13:29 . Limitations to Documentation: no limitations . Information obtained by: patient . History of Present Illness 36 year old F presents to the emergency department with the chief complaint of allergic reaction, described as moderate, with intensity rated at 4. Quality is described as other (itching), and is localized to the chest. Patient reports no radiation. Patient started experiencing this day(s) (1) and it has been constant. No relieving factors improve symptom(s), No exacerbating factors reported . Patient notes no other symptoms.. Patient did receive the following treatments prior to arrival, other (benadryl and pepcid) Related Data Home Medications Medication Instructions Recorded Confirmed ibuprofen 200 mg tablet (Motrin IB) 200 mg PO PRN 08/15/12 02/24/22 epinephrine 0.3 mg/0.3 mL 0.3 mg (0.3 mL) IM ONCE PRN 12/18/17 02/24/22 injection, auto-injector (EpiPen hypersensitivity reaction #2 ea 2-Eder) epinephrine 0.3 mg/0.3 mL 0.3 mg (0.3 mL) IM Q5-15M PRN #2 ea 02/24/22 injection, auto-injector (EpiPen 2-Eder) prednisone 20 mg tablet 60 mg PO DAILY 5 days #15 tabs 02/24/22 Previous Rx's Medication Instructions Recorded epinephrine 0.3 mg/0.3 mL 0.3 mg (0.3 mL) IM ONCE PRN 12/18/17 injection, auto-injector (EpiPen hypersensitivity reaction #2 ea 2-Eder) epinephrine 0.3 mg/0.3 mL 0.3 mg (0.3 mL) IM Q5-15M PRN #2 ea 02/24/22 injection, auto-injector (EpiPen 2-Eder) prednisone 20 mg tablet 60 mg PO DAILY 5 days #15 tabs 02/24/22 Allergies Allergy/AdvReac Type Severity Reaction Status Date / Time venlafaxine HCl AdvReac Severe VISUAL Unverified 02/24/22 13:18 [From Effexor] CHANGES General Stated Complaint: Allergic JANICE: 3 Review of Systems Constitutional Constitutional: Denies fever(s) ENT Ears, Nose, Mouth, and Throat: Denies lip swelling, Denies throat swelling and Denies tongue swelling Cardiovascular Cardiovascular: Denies chest pain and Denies dyspnea Respiratory Respiratory: Denies dyspnea and Denies wheezing Integumentary/Breasts Skin/Breast: Reports rash Allergic/Immunologic Allergic/Immunologic: Denies lip swelling, Denies throat swelling, Denies tongue swelling and Denies wheezing PFSH All Active Problems (Updated 02/24/22 @ 15:39 by YENNY Arredondo) Dog bite (Acute) Allergic reaction (Acute) Migraine (Acute 08/21/12) Contraception (Acute 11/26/15) Anxiety (Acute 08/21/12) Surgical History abdominoplasty (05/05/16) [facility] [place] Family History Mother Essential hypertension Neoplasm BREAST Father Essential hypertension Grandfather Heart disease Grandfather Acute ill-defined cerebrovascular disease Grandmother Heart disease Grandmother No problems noted. Brother No problems noted. Brother No problems noted. Social History Smoking/Tobacco Use Status: Never Smoking risk assessment performed?: Yes Alcohol Intake: current Alcohol Intake frequency: a few times a month Alcohol t ype: beer Drug use: Occasionally Substance use type: marijuana Do you feel safe at home: Yes Do you feel safe in your relationship?: Yes Exam Const General: cooperative, healthy appearing, comfortable and no acute distress Orientation: alert and awake HENMT Head: normal to inspection, normocephalic and atraumatic Face and sinus: normal facial exam Mouth: moist mucous membranes Teeth and gingiva: dentition normal Throat: posterior oropharynx normal Eyes General: appearance normal, both eyes and all related structures Conjunctivae: conjunctivae normal Neck Neck: full ROM, no meningeal signs, trachea midline, supple and nontender Neck images: 2 1. Blanchable nontender erythema. Borders are well circumscribed. Hive-like in nature. Nontender. No evidence of secondary infection. No lymphangitic streaking. Resp Effort & Inspection: normal respiratory effort and able to speak in complete sentences Auscultation: clear to auscultation bilaterally Cardio Rate: regular rate Rhythm: regular rhythm Back/Spine/Pelvis Back: No back tenderness Other: Normal inspection Skin Lesions: no lesions Other: Rash as noted above Neuro General: patient alert, patient awake, moves all extremities and no focal motor deficits Cognition: normal cognition Speech: speech normal Gait: normal gait Sensory Exam: no sensory deficits noted Extrem General: normal to inspection Psych Appearance: grossly normal Mental Status: mental status grossly normal Course Vital Signs Vital signs: Vital Signs Temperature 37.4 C 02/24/22 13:11 Pulse 78 02/24/22 13:11 Respiratory Rate 16 02/24/22 13:11 Blood Pressure 132/92 H 02/24/22 13:11 Pulse Oximetry 99 02/24/22 13:11 Temperature 37.4 C 02/24/22 13:11 Temperature Source Skin 02/24/22 13:11 Pulse 78 02/24/22 13:11 Respiratory Rate 16 02/24/22 13:11 Respiratory Effort Short of Breath 02/24/22 13:33 Respiratory Pattern Normal 02/24/22 13:33 Blood Pressure 132/92 H 02/24/22 13:11 Blood Pressure Position Sitting 02/24/22 13:11 Pulse Oximetry 99 02/24/22 13:11 Oxygen Delivery Method Room Air 02/24/22 13:11 Oxygen Flow Rate 0 02/24/22 13:11 Pain Level 3 02/24/22 13:11 PAWSS Have you Been Recently Intoxicated or Drunk Within the Last 30 days?: No Have you Ever Experienced Previous Episodes of Alcohol Withdrawal?: No Have you ever Experienced Withdrawal Seizures?: No Have you ever Experienced Delirium Tremens(DT)s?: No Have you ever undergone Alcohol Rehabilitation Treatment (i.e, inpt ot outpatient treatment programs)?: No Have you ever Experienced Blackouts?: No Have you ever Combined Alcohol with other Downers within the last 90 days?: No Have you ever Combined Alcohol with any other Substance of Abuse during the last 90 days?: No Result: 0
[2022-02-24] MEDS: Normal Saline 1,000 ML 1000 ML IV (13:48)
[2022-02-24] MEDS: methylPREDNISolone SUCC 125 MG VIAL IVP (13:48)
[2022-02-24] MEDS: diphenhydrAMINE 50 MG/ML VIAL IVP (13:48)
--- NOTE | 2022-02-24 15:36 | NUR.NOTE ---
Pt resting in the bed, states no resp distress, no facial edema. pt only c/o itching at this moment Nursing Note:
== END 2022-02-24 16:00 | disposition home or self-care (01) ==
PROVIDERS: Emergency Provider Physician Assistant; PCP Nurse Practitioner Family
DX: T78.40XA Allergy, unspecified, initial encounter (principal); L53.9 Erythematous condition, unspecified; X58.XXXA Exposure to other specified factors, initial encounter
CPT/HCPCS: 96361; 96374; 96375; 99284; J1200; J2930

== ENCOUNTER 2022-06-09 02:31 | Outpatient (CLI) | payer OTHER, SELFPAY ==
[2022-06-09 07:40] LABS: Abs Immature Grans 0.01 10^3/uL (0.0-0.06); Absolute Basophil Count 0.05 10^3/uL (0.0-0.2); Absolute Eosinophil Count 0.24 10^3/uL (0.0-0.7); Absolute Lymphocyte Count 1.87 10^3/uL (1.2-3.4); Absolute Monocyte Count 0.72 10^3/uL (0.1-0.8); Absolute Neutrophil Count 4.45 10^3/uL (1.2-6.7); Basophils % 0.7; Eosinophils % 3.3; HCT 43.8 % (36.0-46.0); HGB 14.5 g/dL (11.2-15.7); Immature Grans % 0.1; Lymphocytes % 25.5; MCH 29.6 pg (27.0-33.0); MCHC 33.1 % (32.0-36.0); MCV 89 fL (80-95); MPV 9.7 fL (8.0-11.0); Monocytes % 9.8; Neutrophils % 60.6; Platelet Count 286 10^3/uL (130-400); RDW 12.7 % (11.7-14.6); RDW-SD 41.5 fL; WBC 7.34 10^3/uL (4.4-10.8)
[2022-06-09 07:49] LABS: Hemoglobin A1C 5.4 % (<5.7)
[2022-06-09 08:37] LABS: Iron 98 ug/dL (50-170); Total Iron Binding Capacity 395 ug/dL (250-450)
[2022-06-09 08:55] LABS: ALT 32 U/L (14-59); AST 18 U/L (15-37); Albumin 3.7 g/dL (3.4-5.0); Alkaline Phosphatase 99 U/L (46-116); Anion Gap 10.2 mmol/L (3-11); BUN 19 mg/dL (7-18); Bilirubin, Total 0.7 mg/dL (0.2-1.0); CO2 25.8 mmol/L (21.0-32.0); CREATININE 0.8 mg/dL (0.55-1.02); Calcium 9.2 mg/dL (8.5-10.1); Calculated LDL 145 mg/dL (<100); Chloride 103 mmol/L (98-107); Cholesterol 240 mg/dL (<200); Estimated GFR 97.26 (mL/min/1.73m2); Ferritin 96 ng/mL (8-252); Folate 19.6 ng/mL (8.6-20.0); Glucose 117 mg/dL (74-106); HDL Cholesterol 49 mg/dL (40-60); Potassium 4.2 mmol/L (3.5-5.1); Sodium 139 mmol/L (136-145); TSH 5.39 uIU/mL (0.36-3.74); Total Protein 7.8 g/dL (6.4-8.2); Triglyceride 231 mg/dL (<150); Vitamin B12 404 pg/mL (193-986)
[2022-06-09 09:00] LABS: Vitamin D 25 Total 23.5 ng/mL (30-100)
[2022-06-09 19:01] LABS: Parathyroid Hormone,Intact 47 pg/mL (19-88)
[2022-06-15 19:19] LABS: Thiamine (Vitamin B1), WB 139 nmol/L (70-180)
[2022-06-20 11:34] LABS: Insulin, Free 21 uIU/mL (3-25)
[2022-06-20 11:35] LABS: Insulin, Total 25 uIU/mL (3-25)
== END 2022-06-09 02:32 | disposition home or self-care (01) ==
LOC: LBO 02:31
PROVIDERS: PCP Nurse Practitioner; Visit Provider Surgery
DX: E66.01 Morbid (severe) obesity due to excess calories (principal); Z68.43 Body mass index [BMI] 50.0-59.9, adult
CPT/HCPCS: 36415; 80053; 80061; 82306; 83525; 83527; 82607; 82728; 82746; 83036; 83540; 83550; 83970; 84425; 84443; 85025

== ENCOUNTER 2022-08-09 10:01 | Outpatient (REF) | payer OTHER, SELFPAY ==
--- NOTE | 2022-08-09 09:15 | PAPFT_PTH ---
PATIENT: Angy Brown LOC: [facility] U#:[id number] AGE/SX: 37/F ROOM: RE08/09/[address]: Cindy Velarde APRN : 1985 BED: DIS: 08/09/2022 SPEC #: [id number] RECD: 08/09/22 17:02 STATUS: STEPHANIE AKBAR #: [id number] BOLA: 08/09/22 09:[address]: Cindy Velarde DEPT: [facility] Cytology RECD BY: Lakisha Dorman Tissues: 1 - CX/ENDOCX FOR PAP SMEARS Procedures: PAP THIN PREP/UVM Screening Comments: [id number] (UNSATISFACTORY FOR EVALUATION)
== END 2022-08-09 10:02 | disposition home or self-care (01) ==
LOC: LBN 10:01
PROVIDERS: PCP Nurse Practitioner; Visit Provider Nurse Practitioner
DX: Z12.4 Encounter for screening for malignant neoplasm of cervix (principal)
CPT/HCPCS: 88142

== ENCOUNTER 2022-09-05 17:54 | Outpatient (REF) | payer OTHER, SELFPAY ==
--- NOTE | 2022-09-05 13:15 | PAPFT_PTH ---
PATIENT: Angy Brown LOC: [facility] U#:[id number] AGE/SX: 37/F ROOM: RE09/05/[address]: Cindy Velarde APRN : 1985 BED: DIS: 09/05/2022 SPEC #: [id number] RECD: 09/05/22 18:02 STATUS: STEPHANIE AKBAR #: [id number] BOLA: 09/05/22 13:[address]: Cindy Velarde DEPT: [facility] Cytology RECD BY: Lakisha Dorman Tissues: 1 - CX/ENDOCX FOR PAP SMEARS Procedures: PAP THIN PREP/UVM Screening HPV DNA PROBE Comments: [id number]
== END 2022-09-05 17:55 | disposition home or self-care (01) ==
LOC: LBN 17:54
PROVIDERS: PCP Nurse Practitioner; Visit Provider Nurse Practitioner
DX: Z12.4 Encounter for screening for malignant neoplasm of cervix (principal)
CPT/HCPCS: 88142; 87624

== ENCOUNTER 2023-12-06 16:27 | Outpatient (CLI) | payer OTHER, SELFPAY ==
[2023-12-06 16:31] LABS: ESR 1 mm/hr (0-20)
[2023-12-06 17:13] LABS: C-Reactive Protein < 0.50 mg/dL (<or=0.5); Lipase 32 U/L (16-77)
== END 2023-12-06 16:28 | disposition home or self-care (01) ==
LOC: LBO 16:28
PROVIDERS: PCP Nurse Practitioner; Visit Provider Nurse Practitioner
DX: R10.9 Unspecified abdominal pain (principal)
CPT/HCPCS: 36415; 83690; 85652; 86140